=== PATIENT | female | born 1970 ===

== ENCOUNTER 2016-09-27 07:19 | Day surgery (SDC) | payer BC ==
[2016-09-27] VITALS (8 sets, daily range): BP systolic 101–121; BP diastolic 69–81
[~2016-09-27] VITALS: Ht 172.7 cm; Wt 66.7 kg
--- NOTE | 2016-09-27 06:02 | Anethesia Preoperative Eval ---
Anesthesia Pre-op PMH/ROS General Date of Evaluation: Sep 27, 2016 Time of Evaluation: 06:02 Anesthesiologist: rashawn ASA Score: ASA 2 Mallampati Score Class I : Soft palate, uvula, fauces, pillars visible Class II: Soft palate, uvula, fauces visible Class III: Soft palate, base of uvula visible Class IV: Only hard plate visible Mallampati Classification: Class II Surgeon: neelima Diagnosis: gerd Surgical Procedure: egd Anesthesia History: none Social History: smoking - nonsmoker Family History: no anesthesia problems Allergies: Coded Allergies: PENICILLINS (Verified Allergy, Intermediate, 09/27/16) REDNESS AND RASH Medications: see eMAR Past Medical History Gastrointestinal/Genitourinary: Reports: other - kidney stones Anesthesia Pre-op Phys. Exam Physician Exam Labs Test 09/27/16 07:35 Urine HCG, Qualitative Negative Constitutional: NAD Neurologic: CN 2-12 intact Cardiovascular: RRR Respiratory: CTA Gastrointestinal: S/NT/ND Airway Exam Mallampati Score: Class II MO: full Neck: supple TMD: 2fb ROM: full Teeth: intact Anesthesia Pre-op A/P Labs Urine Test Labs Test 09/27/16 07:35 Urine HCG, Qualitative Negative Risk Assessment & Plan Assessment: asa2 Plan: mac Status Change Before Surgery: No Pre-Antibiotics Drug: EUSEBIO Yuan Sep 27, 2016 06:02
[2016-09-27] MEDS ORDERED: ASPIR 8181 MG ORAL (08:03)
[2016-09-27] MEDS ORDERED: OMEPRAZOLE20 M2 ORAL (08:03)
[2016-09-27] MEDS ORDERED: ZANTAC150 MG ORAL (08:03)
--- NOTE | 2016-09-27 08:39 | Pre-Procedure Note/Attestation ---
Pre-Procedure Note/Attestation Complete Prior to Procedure Planned Procedure: not applicable Procedure Narrative: egd Indications for Procedure Pre-Operative Diagnosis: gerd Attestation I attest that I discussed the nature of the procedure; its benefits; risks and complications; and alternatives (and the risks and benefits of such alternatives ), prior to the procedure, with the patient (or the patient's legal senior patient account representative). I attest that, if there was a reasonable possibility of needing a blood transfusion, the patient (or the patient's legal senior patient account representative) was given the [facility] [facility] standardized written summary, pursuant to the [place] Blood Safety Act ([place] Health and Safety Code # 1645, as amended). I attest that I re-evaluated the patient just prior to the surgery and that there has been no change in the patient's H&P, except as documented below: ANNA CANO Sep 27, 2016 08:39
--- NOTE | 2016-09-27 08:41 | Short Stay Surgery H&P ---
History of Present Illness History of Present Illness Chief Complaint gerd HPI Ashlie Pires is a 46 year old female who was admitted on for GERD Patient History Allergies: Coded Allergies: PENICILLINS (Verified Allergy, Intermediate, 09/27/16) REDNESS AND RASH PAST MEDICAL HISTORY: (1) GERD (gastroesophageal reflux disease) (2) Kidney calculus Past Surgeries: Social History: Medication History Scheduled Aspirin* (Aspir 81*), 81 MG ORAL DAILY, (Reported) Omeprazole (Omeprazole), 20 MG ORAL DAILY, (Reported) Ranitidine Hcl* (Zantac*), 300 MG ORAL DAILY, (Reported) Review of Systems Cardiovascular: Reports: no symptoms Respiratory: Reports: no symptoms Skeletal: Reports: no symptoms Gastrointestinal: Reports: gastro esophageal reflux disease, no symptoms Genitourinary: Reports: no symptoms Neurologic: Reports: no symptoms Endocrine: Reports: no symptoms Hematologic: Reports: no symptoms Physical Exam Vital Signs Last Vital Signs Date Time Temp Pulse Resp B/P Pulse Ox O2 Delivery O2 Flow Rate FiO2 09/27/16 08:06 97.7 75 20 111/79 98 Room Air Labs Laboratory Tests Test 09/27/16 07:35 Urine HCG, Qualitative Negative Skin: normal HENT: normal Heart: normal Lungs: normal Abdomen: normal Extremities: normal Plan Plan of Care egd Final Diagnosis: Attestation Are the patient's medical conditions optimized for surgery? ANNA CANO Sep 27, 2016 08:41
[2016-09-27] MEDS ORDERED: Propofol 10mg/ml 20ml IV ONE (08:45)
[2016-09-27] MEDS ORDERED: Lidocaine 1% MPF 10mg/ml 5ml ONE (08:45)
--- NOTE | 2016-09-27 09:09 | Endoscopy Procedure Note ---
Endoscopy Procedure Note Indication for Procedure: gerd Procedures Performed: EGD Operative Findings/Diagnosis: gastric polyp Specimen: yes Pt Tolerated Procedure Well: Yes Estimated Blood Loss: none Anesthesiologist: dioni Anesthesia: MAC Implant(s) used?: No 50 yrs or older w/o bx or poly: Not Applicable 10yrs. F/U not recommended: Not Applicable ANNA CANO Sep 27, 2016 09:09
--- NOTE | 2016-09-27 09:26 | Immediate Post-Op Evaluation ---
Immediate Post-Op Evalulation Immediate Post-Op Evalulation Procedure: egd Date of Evaluation: Sep 27, 2016 Time of Evaluation: 09:25 IV Fluids: 200ml 0.9ns Blood Products: none Estimated Blood Loss: negligible Blood Pressure Systolic: 113 Blood Pressure Diastolic: 65 Pulse Rate: 67 Respiratory Rate: 18 O2 Sat by Pulse Oximetry: 100 Temperature (Fahrenheit): 97.0 Pain Score (1-10): 0 Nausea: No Vomiting: No Complications none Patient Status: awake, reacts, patent Hydration Status: adequate Drug: EUSEBIO Yuan Sep 27, 2016 09:26
--- NOTE | 2016-09-27 09:28 | 48 Hour Post Anesthesia Eval ---
Post Anesthesia Evaluation Procedure: egd Date of Evaluation: Sep 27, 2016 Time of Evaluation: 09:26 Blood Pressure Systolic: 112 0: 65 Pulse Rate: 65 Respiratory Rate: 18 Temperature (Fahrenheit): 97.0 O2 Sat by Pulse Oximetry: 100 Airway: patent Nausea: No Vomiting: No Pain Intensity: 0 Hydration Status: adequate Cardiopulmonary Status: stable Mental Status/LOC: patient returned to baseline Post-Anesthesia Complications: none Follow-up care needed: N/A EUSEBIO CROSS Sep 27, 2016 09:27
[2016-09-27] MEDS ORDERED: Atropine Inj 1mg/10ml Syr IV PRN (09:30)
[2016-09-27] MEDS ORDERED: Hydromorphone 0.5mg/0.5ml inj IVP PRN (09:30)
[2016-09-27] MEDS ORDERED: DiphenhydrAMINE 50mg/ml Inj IVP PRN (09:30)
[2016-09-27] MEDS ORDERED: Midazolam 2mg/2ml Inj IVP PRN (09:30)
--- NOTE | 2016-09-27 09:45 | Procedure Note ---
DATE OF PROCEDURE: 09/27/2016 PROCEDURE: Upper endoscopy with biopsy. ANESTHESIOLOGIST: Ana Luisa Smith M.D. INSTRUMENT: Olympus adult flexible upper endoscope. INDICATION: Chronic GERD. REASON FOR PROCEDURE: The procedure, risks, benefits, and possible consequences, including hemorrhage, aspiration, perforation and infection, and alternative treatments, were explained to the patient/legal guardian by Dr. Aubrey Mars and the patient/legal guardian understood and accepted these risks. DESCRIPTION OF PROCEDURE: After informed consent was obtained and the patient was adequately sedated, Olympus upper endoscope was advanced from the mouth into the second portion of duodenum and retroflexion was performed in the stomach. The patient had one gastric polyp in the proximal body of the stomach measured roughly about 6 mm, removed with a cold biopsy forceps technique. The patient also has evidence of diffuse gastritis. Random biopsy from antrum was obtained to rule out H. pylori infection. Otherwise, the rest of the upper endoscopic examination was grossly within normal limits. The patient tolerated the procedure very well without any complications. SUMMARY OF FINDINGS: 1. Gastric polyps, status post biopsy. 2. Gastritis, status post biopsy. RECOMMENDATIONS: Follow up biopsy result and treat accordingly. I want to thank, . , for this kind referral. Aubrey Mars M.D. DR: CAROL JOB#: [id number] CC:
== END 2016-09-27 10:30 | disposition home or self-care (01) ==
LOC: GAS 07:19
DX: K21.9 Gastro-esophageal reflux disease without esophagitis (principal); K29.50 Unspecified chronic gastritis without bleeding; K31.7 Polyp of stomach and duodenum; Z88.0 Allergy status to penicillin; Z87.442 Personal history of urinary calculi; Z79.82 Long term (current) use of aspirin
CPT/HCPCS: 43239; 81025; J2704; 94003; 94150